=== PATIENT | male | born 1980 | race Two or more races ===

== ENCOUNTER 2021-09-27 05:53 | Day surgery (SDC) | payer BC, OTHER ==
[2021-09-26 14:15] VITALS: BMI 36.9
[2021-09-27] MEDS ORDERED: MIDAZOLAM HCL 2 MG/2 ML SINGLE DOSE VIAL ONE (07:12)
[2021-09-27] MEDS ORDERED: ROPIVACAINE HCL/PF 100 MG/20 ML VIAL ONE (07:12)
[2021-09-27] MEDS ORDERED: BENZOIN 118 ML SPRAY.PUMP TP ONE (07:33)
[2021-09-27] MEDS ORDERED: ONDANSETRON 4 MG/2 ML VIAL ONE ×2 (07:39→09:28)
[2021-09-27] MEDS ORDERED: DEXAMETHASONE SOD PHOSPHATE 4 MG/1 ML VIAL ONE ×2 (07:39→09:28)
[2021-09-27] MEDS ORDERED: PROPOFOL 20 ML ONE ×4 (07:39→09:22)
[2021-09-27] MEDS ORDERED: SUCCINYLCHOLINE CHLORIDE 200 MG/10 ML SYRINGE ONE (07:39)
[2021-09-27] MEDS ORDERED: ceFAZolin SODIUM 1 GM VIAL ONE ×2 (07:39→08:00)
[2021-09-27] MEDS ORDERED: LIDOCAINE HCL/EPINEPHRINE/PF 20 ML VIAL ONE (08:39)
[2021-09-27] MEDS ORDERED: LIDOCAINE HCL 2% JELLY (5 ML/TUBE) ONE (08:57)
[2021-09-27] MEDS ORDERED: ONDANSETRON 4 MG/2 ML VIAL IVPUSH PRN (12:06)
[2021-09-27] MEDS ORDERED: oxyCODONE HCL 5 MG TABLET PO PRN ×2 (12:06)
[2021-09-27] MEDS ORDERED: LACTATED RINGERS SOLUTION 1,000 ML IV SCH (12:15)
[2021-09-27 13:15] VITALS: TEMP 97.9
[2021-09-27 13:20] VITALS: BP 136/81; PULSE 74
== END 2021-09-27 11:45 | disposition home or self-care (01) ==
LOC: FASU 05:53
PROVIDERS: ATTEND Orthopaedic Surgery Orthopaedic Surgery of the Spine
PROC: 0LQ10ZZ Repair Right Shoulder Tendon, Open Approach (ICD-10-PCS; 2021-09-27)
PROC: 0PB90ZZ Excision of Right Clavicle, Open Approach (ICD-10-PCS; principal; 2021-09-27 08:37)
PROC: 0MN10ZZ Release Right Shoulder Bursa and Ligament, Open Approach (ICD-10-PCS; 2021-09-27 08:37)
DX: M75.121 Complete rotator cuff tear or rupture of right shoulder, not specified as traumatic (principal); M75.41 Impingement syndrome of right shoulder
CPT/HCPCS: 88304-TC; 94760